=== PATIENT | female | born 1955 | race Caucasian/White ===

== ENCOUNTER 2024-03-04 22:15 | Inpatient (IN) | payer OTHER ==
[2024-03-04] MEDS ORDERED: PIPERACILLIN/TAZOB 4.5 GM 4.5 GM/100 ML BAG IVPB ONE (23:04)
[2024-03-05] MEDS: ACETAMINOPHEN 1000 MG/100 ML BAG IVPB ONE (00:07)
[2024-03-05] MEDS: LACTATED RINGERS SOLUTION 1,000 ML/1,000 ML INFUS.BAG IV STA (00:08)
[2024-03-05 00:51] LABS: HEMATOCRIT 35.8 % (32.4-45.2); MCH 30.7 pg (25.7-33.7); MCHC 33.5 g/dl (32.0-36.0); MEAN CELL VOLUME 91.7 fl (80-96); MEAN PLT VOLUME 6.9 fl (7.5-11.1); PLATELET COUNT 363 10^3/uL (134-434); RDW 14.5 % (11.6-15.6)
[2024-03-05 01:04] LABS: ALBUMIN 3.2 g/dl (3.4-5.0); BLOOD UREA NITROGEN 16.1 mg/dL (7-18)
[2024-03-05 01:06] LABS: PHOSPHOROUS 1.9 mg/dL (2.5-4.9)
[2024-03-05 01:08] LABS: BILIRUBIN,TOTAL 1.1 mg/dL (0.2-1); TOT PROT 6.5 g/dl (6.4-8.2)
[2024-03-05 01:10] LABS: INR 1.19 (0.83-1.09); PROTHROMBIN TIME (PATIENT) 13.6 SEC (9.7-13.0)
[2024-03-05 01:12] LABS: ACTIVATED PTT 31.2 SECONDS (25.2-36.5)
[2024-03-05] MEDS: PIPERACILLIN/TAZOB 4.5 GM 4.5 GM in DEXTROSE 5%-WATER 100 ML IVPB ONE (02:32)
[2024-03-05] MEDS: LACTATED RINGERS SOLUTION 1000 ML INFUS.BAG IV ONE ×2 (04:22→07:53)
[2024-03-05] MEDS: VANCOMYCIN 1,000 MG in DEXTROSE 5%-WATER - 250 ML IVPB ONE (04:22)
[2024-03-05] MEDS ORDERED: VANCOMYCIN 750 MG in DEXTROSE 5%-WATER - 150 ML IVPB SCH (07:00)
[2024-03-05] MEDS ORDERED: LACTATED RINGERS SOLUTION 1,000 ML/1,000 ML INFUS.BAG IV SCH ×2 (07:30)
[2024-03-05 07:39] LABS: HEMATOCRIT 32.1 % (32.4-45.2); HEMOGLOBIN 10.7 GM/dL (10.7-15.3); MCH 30.4 pg (25.7-33.7); MCHC 33.2 g/dl (32.0-36.0); MEAN CELL VOLUME 91.6 fl (80-96); MEAN PLT VOLUME 6.5 fl (7.5-11.1); PLATELET COUNT 341 10^3/uL (134-434); RBC 3.51 M/mm3 (3.60-5.2); RDW 14.7 % (11.6-15.6); WHITE BLOOD COUNT 26.7 K/mm3 (4.0-10.0)
[2024-03-05 07:50] LABS: POTASSIUM 3.4 mmol/L (3.5-5.1)
[2024-03-05 07:52] LABS: ALBUMIN 2.7 g/dl (3.4-5.0); BLOOD UREA NITROGEN 15.2 mg/dL (7-18); CALCIUM 8.9 mg/dL (8.5-10.1)
[2024-03-05 07:56] LABS: CREATININE 1.1 mg/dL (0.55-1.3); PHOSPHOROUS 3.2 mg/dL (2.5-4.9)
[2024-03-05 07:57] LABS: BILIRUBIN,TOTAL 1.4 mg/dL (0.2-1); TOT PROT 5.6 g/dl (6.4-8.2)
[2024-03-05] MEDS ORDERED: VANCOMYCIN/WATER FOR INJ (PEG) 750 MG/150 ML BAG IVPB SCH (08:00)
[2024-03-05] MEDS ORDERED: PIPERACILLIN/TAZOB 3.375 GM 3.375 GM in DEXTROSE 5%-WATER - 50 ML IVPB SCH (09:00)
[2024-03-05] MEDS ORDERED: ENOXAPARIN NA (PORCINE) 40 MG/0.4 ML DISP.SYRIN SQ SCH (10:00)
[2024-03-05] MEDS ORDERED: INDOCYANINE GREEN 25 MG/10 ML VIAL IVPUSH ONE (10:25)
[2024-03-05] MEDS ORDERED: HEPARIN NA (PORCINE) 5,000 UNITS/ML 1ML VIAL ONE (10:25)
[2024-03-05] MEDS ORDERED: BUPIVACAINE HCL/PF 0.25% (2.5MG/ML) 10 ML VIAL ONE (10:25)
[2024-03-05] MEDS ORDERED: MIDAZOLAM HCL 2 MG/2 ML SINGLE DOSE VIAL ONE (11:29)
[2024-03-05] MEDS ORDERED: ROCURONIUM BROMIDE 50 MG/5 ML SYRINGE ONE (11:30)
[2024-03-05 11:39] VITALS: BMI 22.2
[2024-03-05] MEDS: cefOXitin SODIUM 2 GM VIAL (RESTRICTED TO ID) IVPB ONE ×2 (11:55)
[2024-03-05] MEDS ORDERED: PROPOFOL 20 ML ONE (12:06)
[2024-03-05] MEDS: BUPIVACAINE HCL/PF 0.25% (2.5MG/ML) 10 ML VIAL IJ ONE ×2 (12:15)
[2024-03-05] MEDS ORDERED: HYDROmorphone HCl 2 MG/ML VIAL ONE (12:50)
[2024-03-05] MEDS ORDERED: KCL 10 MEQ IVPB 10 MEQ/100 ML INFUS.BAG IVPB SCH ×2 (14:00→18:00)
[2024-03-05] MEDS ORDERED: ACETAMINOPHEN INJECTION 100 ML ONE (14:07)
[2024-03-05] MEDS ORDERED: SUGAMMADEX SODIUM 200 MG/2 ML VIAL ONE (14:29)
[2024-03-05] MEDS ORDERED: BACITRACIN ZINC 15 GM TUBE TOPICAL OINTMENT ONE (14:56)
[2024-03-05 15:17] LABS: N-TERMINAL BNP 155.3 pg/ml (5-125)
[2024-03-05] MEDS ORDERED: BENZOIN/ALOE VERA/STORAX/TOLU 58 ML BOTTLE ONE (15:26)
[2024-03-05] MEDS ORDERED: ONDANSETRON 4 MG/2 ML VIAL IVPUSH PRN ×2 (15:54→17:16)
[2024-03-05] MEDS ORDERED: LACTATED RINGERS SOLUTION 1,000 ML IV SCH ×2 (16:00→17:16)
[2024-03-05] MEDS ORDERED: METOPROLOL TARTRATE 5 MG/5 ML VIAL IVPUSH PRN ×2 (16:03→17:16)
[2024-03-05] MEDS ORDERED: KETOROLAC TROMETHAMINE 30 MG/1 ML VIAL ONE (17:57)
[2024-03-05] MEDS: KETOROLAC TROMETHAMINE 15 MG/ML VIAL IVPUSH PRN (18:03)
[2024-03-05] MEDS: PIPERACILLIN/TAZOB 4.5 GM 4.5 GM/100 ML BAG IVPB SCH (18:08)
[2024-03-05] MEDS: LACTATED RINGERS SOLUTION 1,000 ML/1,000 ML INFUS.BAG IV SCH (18:14)
[2024-03-05] MEDS: HYDROmorphone HCl 2 MG/ML VIAL IVPB PRN (19:02)
[2024-03-05] MEDS: KCL 10 MEQ IVPB 10 MEQ/100 ML INFUS.BAG IVPB SCH (19:05)
[2024-03-05] MEDS: ACETAMINOPHEN 1000 MG/100 ML BAG IVPB SCH (21:15)
[2024-03-06] MEDS: KCL 10 MEQ IVPB 10 MEQ/100 ML INFUS.BAG IVPB SCH (01:35)
[2024-03-06 07:19] LABS: HEMATOCRIT 27.2 % (32.4-45.2); HEMOGLOBIN 8.8 GM/dL (10.7-15.3); MCH 29.8 pg (25.7-33.7); MCHC 32.3 g/dl (32.0-36.0); MEAN CELL VOLUME 92.4 fl (80-96); MEAN PLT VOLUME 6.8 fl (7.5-11.1); PLATELET COUNT 293 10^3/uL (134-434); RBC 2.95 M/mm3 (3.60-5.2); RDW 14.7 % (11.6-15.6); WHITE BLOOD COUNT 22.1 K/mm3 (4.0-10.0)
[2024-03-06 07:40] LABS: POTASSIUM 4.5 mmol/L (3.5-5.1)
[2024-03-06 07:46] LABS: ALBUMIN 2.6 g/dl (3.4-5.0); BLOOD UREA NITROGEN 14.6 mg/dL (7-18); CALCIUM 9.1 mg/dL (8.5-10.1)
[2024-03-06 07:50] LABS: CREATININE 0.9 mg/dL (0.55-1.3)
[2024-03-06 07:51] LABS: BILIRUBIN,TOTAL 0.8 mg/dL (0.2-1); TOT PROT 5.4 g/dl (6.4-8.2)
[2024-03-06 09:08] LABS: ANISOCYTOSIS 0; HELMET CELLS 0; HOWELL-JOLLY BODIES 0; MACROCYTOSIS 0; OVALOCYTE 0; ROULEAU 0; SICKELED CELLS 0; TARGET CELLS 0; TEAR DROP CELLS 0; TOXIC GRANULATION 0
[2024-03-06] MEDS: ENOXAPARIN NA (PORCINE) 40 MG/0.4 ML DISP.SYRIN SQ SCH (09:17)
[2024-03-06] MEDS: LACTATED RINGERS SOLUTION 1,000 ML/1,000 ML INFUS.BAG IV SCH (09:18)
[2024-03-06] MEDS: AMIODARONE HCL 200 MG TABLET PO SCH (21:42)
[2024-03-06] MEDS: metoPROLOL SUCCINATE 25 MG TAB.SR.24H (FP) PO SCH (21:42)
[2024-03-07] MEDS: ACETAMINOPHEN 1000 MG/100 ML BAG IVPB ONE (03:39)
[2024-03-07] MEDS: DULoxetine HCL 30 MG CAPSULE.DR PO SCH (09:21)
[2024-03-07 09:37] LABS: BASO % 0.1 % (0-2.0); EOS % 1.4 % (0-4.5); HEMATOCRIT 28.9 % (32.4-45.2); HEMOGLOBIN 9.4 GM/dL (10.7-15.3); LYMPH % 10.1 % (8-40); MCH 30.2 pg (25.7-33.7); MCHC 32.4 g/dl (32.0-36.0); MEAN CELL VOLUME 93.3 fl (80-96); MEAN PLT VOLUME 7.1 fl (7.5-11.1); NEUT % 82.4 % (42.8-82.8); PLATELET COUNT 346 10^3/uL (134-434); RDW 14.9 % (11.6-15.6); WHITE BLOOD COUNT 12.9 K/mm3 (4.0-10.0)
[2024-03-07 09:57] LABS: POTASSIUM 4.1 mmol/L (3.5-5.1)
[2024-03-07 10:00] LABS: BLOOD UREA NITROGEN 13.8 mg/dL (7-18); CALCIUM 9.3 mg/dL (8.5-10.1); MAGNESIUM 2.1 mg/dL (1.8-2.4)
[2024-03-07 10:04] LABS: CREATININE 0.9 mg/dL (0.55-1.3); PHOSPHOROUS 2.7 mg/dL (2.5-4.9)
[2024-03-07] MEDS: traZODone HCL 100 MG TABLET (FP) PO SCH (21:07)
[2024-03-08 10:23] LABS: POTASSIUM 3.5 mmol/L (3.5-5.1)
[2024-03-08 10:34] LABS: CALCIUM 9.1 mg/dL (8.5-10.1)
[2024-03-08 10:35] LABS: BLOOD UREA NITROGEN 9.9 mg/dL (7-18); MAGNESIUM 2.1 mg/dL (1.8-2.4)
[2024-03-08 10:38] LABS: PHOSPHOROUS 3.4 mg/dL (2.5-4.9)
[2024-03-08 11:11] LABS: BASO % 0.4 % (0-2.0); EOS % 4.5 % (0-4.5); HEMATOCRIT 27.1 % (32.4-45.2); HEMOGLOBIN 9.1 GM/dL (10.7-15.3); LYMPH % 19.3 % (8-40); MCH 31.1 pg (25.7-33.7); MCHC 33.7 g/dl (32.0-36.0); MEAN CELL VOLUME 92.2 fl (80-96); MONO % 9.3 % (3.8-10.2); NEUT % 66.5 % (42.8-82.8); PLATELET COUNT 355 10^3/uL (134-434); RBC 2.94 M/mm3 (3.60-5.2); RDW 14.5 % (11.6-15.6); WHITE BLOOD COUNT 8.2 K/mm3 (4.0-10.0)
[2024-03-08] MEDS: ACETAMINOPHEN 500 MG TABLET (FP) PO PRN (12:51)
[2024-03-08] MEDS: oxyCODONE HCL 5 MG TABLET PO PRN (23:41)
[2024-03-09 07:11] LABS: BASO % 0.6 % (0-2.0); EOS % 5.3 % (0-4.5); HEMATOCRIT 27.5 % (32.4-45.2); HEMOGLOBIN 9.1 GM/dL (10.7-15.3); LYMPH % 20.1 % (8-40); MCH 30.7 pg (25.7-33.7); MCHC 33.3 g/dl (32.0-36.0); MEAN CELL VOLUME 92.2 fl (80-96); MEAN PLT VOLUME 7.1 fl (7.5-11.1); MONO % 9.4 % (3.8-10.2); NEUT % 64.6 % (42.8-82.8); PLATELET COUNT 371 10^3/uL (134-434); RBC 2.98 M/mm3 (3.60-5.2); RDW 14.6 % (11.6-15.6)
[2024-03-09 07:28] LABS: POTASSIUM 3.3 mmol/L (3.5-5.1)
[2024-03-09 07:33] LABS: CALCIUM 8.9 mg/dL (8.5-10.1)
[2024-03-09 07:35] LABS: BLOOD UREA NITROGEN 7.2 mg/dL (7-18)
[2024-03-09 07:36] LABS: PHOSPHOROUS 3.7 mg/dL (2.5-4.9)
[2024-03-09 07:37] LABS: CREATININE 0.8 mg/dL (0.55-1.3)
[2024-03-09] MEDS: POTASSIUM CHLORIDE ORAL LIQUID 20 MEQ/15 ML PO ONE (10:25)
[2024-03-09 14:13] VITALS: BP 129/67; PULSE 76; RESP 18; TEMP 98.2
== END 2024-03-09 15:13 | disposition home health service (06) | DRG 854 ==
LOC: JER 22:15 → JERBED 03-05 04:21 → J8W 03-05 08:57 → J4S 03-05 18:45
PROVIDERS: ADMIT Internal Medicine; ATTEND Internal Medicine
PROC: 0D1N074 Bypass Sigmoid Colon to Cutaneous with Autologous Tissue Substitute, Open Approach (ICD-10-PCS; 2024-03-05)
PROC: 8E0W0CZ Robotic Assisted Procedure of Trunk Region, Open Approach (ICD-10-PCS; 2024-03-05)
PROC: 0DTN0ZZ Resection of Sigmoid Colon, Open Approach (ICD-10-PCS; principal; 2024-03-05 13:30)
DX: A41.9 Sepsis, unspecified organism (principal); I31.39 Other pericardial effusion (noninflammatory); K57.20 Diverticulitis of large intestine with perforation and abscess without bleeding; I48.92 Unspecified atrial flutter; E83.39 Other disorders of phosphorus metabolism; I48.91 Unspecified atrial fibrillation; F41.8 Other specified anxiety disorders
CPT/HCPCS: 0241U-QW; 36415; 71045-TC-FY; 74177-TC; 80048; 80053; 83605; 83735; 83880; 84100; 84443; 84484; 85025; 85027; 85610; 85730; 86850; 86900; 86901; 87040; 88307-TC; 93005; 93010; 93306-TC; 94760; 97116-GP; 97161-GP; 99285-25; J0131; J1644

== ENCOUNTER 2024-05-31 04:17 | Day surgery (SDC) | payer OTHER ==
[2024-05-31 08:56] VITALS: BMI 20.9
[2024-05-31 11:45] VITALS: TEMP 97.7
[2024-05-31 11:46] VITALS: PULSE 74; RESP 18
[2024-05-31 12:06] VITALS: BP 108/66
== END 2024-05-31 12:23 | disposition home or self-care (01) ==
LOC: JASU-ENDO 04:17
PROVIDERS: ATTEND Internal Medicine Gastroenterology
PROC: 0DBP8ZX Excision of Rectum, Via Natural or Artificial Opening Endoscopic, Diagnostic (ICD-10-PCS; principal; 2024-05-31 10:00)
DX: K62.89 Other specified diseases of anus and rectum (principal); K64.4 Residual hemorrhoidal skin tags; K64.8 Other hemorrhoids; Z87.19 Personal history of other diseases of the digestive system
CPT/HCPCS: 88305-TC

== ENCOUNTER 2024-07-23 06:08 | Inpatient (IN) | payer OTHER ==
[2024-07-19 12:33] VITALS: BMI 21.7
[2024-07-23] MEDS ORDERED: GABAPENTIN 300 MG CAPSULE ONE (06:27)
[2024-07-23] MEDS ORDERED: ACETAMINOPHEN 500 MG TABLET (FP) ONE (06:27)
[2024-07-23] MEDS: GABAPENTIN 300 MG CAPSULE PO ONE (06:34)
[2024-07-23] MEDS: ACETAMINOPHEN 500 MG TABLET (FP) PO ONE (06:34)
[2024-07-23] MEDS: SCOPOLAMINE HYDROBROMIDE 1 PATCH PATCH.TD72 TD ONE (06:50)
[2024-07-23] MEDS ORDERED: BUPIVACAINE HCL/PF 0.25% (2.5MG/ML) 10 ML VIAL ONE (07:03)
[2024-07-23] MEDS ORDERED: oxyCODONE HCL 5 MG TABLET PO PRN (07:10)
[2024-07-23] MEDS ORDERED: ONDANSETRON 4 MG/2 ML VIAL IVPUSH PRN (07:10)
[2024-07-23] MEDS ORDERED: cefOXitin SODIUM 2 GM VIAL (RESTRICTED TO ID) IVPB ONE (07:30)
[2024-07-23] MEDS ORDERED: DEXAMETHASONE SOD PHOSPHATE 4 MG/1 ML VIAL ONE (07:38)
[2024-07-23] MEDS ORDERED: HYDROmorphone HCl 2 MG/ML VIAL ONE ×2 (07:38→11:41)
[2024-07-23] MEDS ORDERED: ONDANSETRON 4 MG/2 ML VIAL ONE ×2 (07:38→12:50)
[2024-07-23] MEDS ORDERED: LIDOCAINE HCL/PF 2% SDV 5ML VIAL ONE (07:38)
[2024-07-23] MEDS ORDERED: PROPOFOL 40 ML ONE (07:39)
[2024-07-23] MEDS ORDERED: MIDAZOLAM HCL 2 MG/2 ML SINGLE DOSE VIAL ONE (07:39)
[2024-07-23] MEDS ORDERED: ROCURONIUM BROMIDE 50 MG/5 ML SYRINGE ONE ×3 (07:39→11:59)
[2024-07-23] MEDS ORDERED: SUCCINYLCHOLINE CHLORIDE 200 MG/10 ML SYRINGE ONE (07:40)
[2024-07-23] MEDS ORDERED: METOPROLOL TARTRATE 5 MG/5 ML VIAL ONE (07:42)
[2024-07-23] MEDS: cefOXitin SODIUM 2 GM VIAL (RESTRICTED TO ID) IVPB ONE ×2 (08:30→18:24)
[2024-07-23] MEDS: BUPIVACAINE HCL/PF 0.25% (2.5MG/ML) 10 ML VIAL IJ ONE (09:14)
[2024-07-23] MEDS ORDERED: INDOCYANINE GREEN 25 MG/10 ML VIAL IVPUSH ONE (10:57)
[2024-07-23] MEDS ORDERED: TRANEXAMIC ACID 1000 MG/10 ML VIAL ONE (12:48)
[2024-07-23] MEDS ORDERED: SUGAMMADEX SODIUM 200 MG/2 ML VIAL ONE ×2 (12:53→13:21)
[2024-07-23] MEDS: HYDROmorphone HCl 2 MG/ML VIAL IVPUSH PRN (14:55)
[2024-07-23] MEDS ORDERED: HYDROmorphone HCL CARPU-JECT 2 MG/1 ML DISP.SYRIN ONE (14:56)
[2024-07-23] MEDS: LACTATED RINGERS SOLUTION 1,000 ML IV SCH (15:04)
[2024-07-23 15:31] LABS: ABSOLUTE IMMATURE GRANULOCYTES 0.06 x10^3/uL (0.0-0.031); BASOPHILS # 0.03 x10^3/uL (0.01-0.08); EOSINOPHIL % 0.1 % (0.7-5.8); EOSINOPHILS # 0.01 x10^3/uL (0.04-0.36); HEMATOCRIT 34.4 % (34.1-44.9); HEMOGLOBIN 10.9 g/dL (11.2-15.7); MCHC 31.7 g/dl (32.2-35.5); MEAN CELL VOLUME 96.6 fl (79.4-94.8); MEAN PLT VOLUME 8.6 fl (9.4-12.3); MONOCYTE # 0.43 x10^3/uL (0.24-0.86); MONOCYTE % 2.7 % (4.7-12.5); PLATELET COUNT 339 x10^3/uL (182-369)
[2024-07-23 15:52] LABS: CHLORIDE 104 mmol/L (98-107); POTASSIUM 4.5 mmol/L (3.5-5.1); SODIUM 136 mmol/L (136-145)
[2024-07-23 15:54] LABS: ANION GAP 6 mmol/L (4-13); BLOOD UREA NITROGEN 15.1 mg/dL (7-18); CALCIUM 8.6 mg/dL (8.5-10.1); CO2 26 mmol/L (21-32); GLUCOSE,RANDOM 148 mg/dL (74-106)
[2024-07-23 15:57] LABS: CREATININE 1.5 mg/dL (0.55-1.3)
[2024-07-23] MEDS: CEFOXITIN SODIUM 2 GM in DEXTROSE 5%-WATER 100 ML IVPB SCH (17:28)
[2024-07-23] MEDS: ACETAMINOPHEN 325 MG TABLET (FP) PO SCH (18:57)
[2024-07-23] MEDS: oxyCODONE HCL 5 MG TABLET PO PRN (21:47)
[2024-07-23] MEDS: traZODone HCL 100 MG TABLET (FP) PO SCH (21:48)
[2024-07-23] MEDS: AMIODARONE HCL 200 MG TABLET PO SCH (21:48)
[2024-07-23 23:12] LABS: ABSOLUTE IMMATURE GRANULOCYTES 0.03 x10^3/uL (0.0-0.031); BASOPHILS # 0.01 x10^3/uL (0.01-0.08); HEMATOCRIT 29.1 % (34.1-44.9); HEMOGLOBIN 9.3 g/dL (11.2-15.7); MEAN CELL VOLUME 96.4 fl (79.4-94.8); MEAN PLT VOLUME 8.7 fl (9.4-12.3); MONOCYTE # 0.82 x10^3/uL (0.24-0.86); MONOCYTE % 7.8 % (4.7-12.5); PLATELET COUNT 271 x10^3/uL (182-369); RDW 13.1 % (12.4-16.4)
[2024-07-23 23:38] LABS: POTASSIUM 4.6 mmol/L (3.5-5.1)
[2024-07-23 23:41] LABS: ALBUMIN 2.9 g/dl (3.4-5.0); BLOOD UREA NITROGEN 16.8 mg/dL (7-18); CALCIUM 8.4 mg/dL (8.5-10.1); MAGNESIUM 1.7 mg/dL (1.8-2.4)
[2024-07-23 23:44] LABS: CREATININE 1.6 mg/dL (0.55-1.3); PHOSPHOROUS 5.4 mg/dL (2.5-4.9)
[2024-07-23 23:46] LABS: BILIRUBIN,TOTAL 0.8 mg/dL (0.2-1); TOT PROT 5.2 g/dl (6.4-8.2)
[2024-07-24] MEDS ORDERED: MAGNESIUM 2GM/50ML STERILE WATER IVPB IVPB ONE (07:16)
[2024-07-24 09:08] LABS: ABSOLUTE IMMATURE GRANULOCYTES 0.04 x10^3/uL (0.0-0.031); BASOPHILS # 0.01 x10^3/uL (0.01-0.08); HEMATOCRIT 30.6 % (34.1-44.9); HEMOGLOBIN 9.5 g/dL (11.2-15.7); MEAN CELL VOLUME 96.8 fl (79.4-94.8); MEAN PLT VOLUME 8.8 fl (9.4-12.3); MONOCYTE # 1.15 x10^3/uL (0.24-0.86); MONOCYTE % 9.9 % (4.7-12.5); PLATELET COUNT 309 x10^3/uL (182-369)
[2024-07-24 09:26] LABS: POTASSIUM 4.3 mmol/L (3.5-5.1)
[2024-07-24 09:37] LABS: BLOOD UREA NITROGEN 16.4 mg/dL (7-18); CALCIUM 8.6 mg/dL (8.5-10.1); MAGNESIUM 1.8 mg/dL (1.8-2.4)
[2024-07-24 09:41] LABS: CREATININE 1.7 mg/dL (0.55-1.3); PHOSPHOROUS 4.2 mg/dL (2.5-4.9)
[2024-07-24] MEDS: HYDROmorphone HCL CARPU-JECT 2 MG/1 ML DISP.SYRIN IVPB PRN (09:43)
[2024-07-24] MEDS: MULTIVITAMINS (DAILY MVI) TABLET (FP) PO SCH (09:50)
[2024-07-24] MEDS: ENOXAPARIN NA (PORCINE) 40 MG/0.4 ML DISP.SYRIN SQ SCH (09:50)
[2024-07-24] MEDS ORDERED: AMIODARONE HCL 100 MG TABLET PO SCH (10:00)
[2024-07-24] MEDS: MAGNESIUM 2GM/50ML STERILE WATER IVPB IVPB ONE (10:58)
[2024-07-24] MEDS: DULoxetine HCL 30 MG CAPSULE.DR PO SCH ×2 (10:58→11:02)
[2024-07-24] MEDS: LORazepam 0.5 MG TABLET PO ONE (14:27)
[2024-07-24] MEDS: ACETAMINOPHEN 500 MG TABLET (FP) PO SCH (15:51)
[2024-07-24] MEDS: GABAPENTIN 300 MG CAPSULE PO SCH (15:51)
[2024-07-24] MEDS ORDERED: LORazepam 1 MG TABLET ONE (16:42)
[2024-07-24] MEDS: LORazepam 1 MG TABLET PO PRN (16:51)
[2024-07-24 18:28] LABS: ABSOLUTE IMMATURE GRANULOCYTES 0.06 x10^3/uL (0.0-0.031); BASOPHILS # 0.03 x10^3/uL (0.01-0.08); EOSINOPHIL % 0.1 % (0.7-5.8); EOSINOPHILS # 0.02 x10^3/uL (0.04-0.36); HEMATOCRIT 30.5 % (34.1-44.9); HEMOGLOBIN 9.6 g/dL (11.2-15.7); MCHC 31.5 g/dl (32.2-35.5); MEAN CELL VOLUME 97.1 fl (79.4-94.8); MEAN PLT VOLUME 8.9 fl (9.4-12.3); MONOCYTE # 1.26 x10^3/uL (0.24-0.86); MONOCYTE % 8.6 % (4.7-12.5); PLATELET COUNT 351 x10^3/uL (182-369); RDW 13.2 % (12.4-16.4)
[2024-07-24 18:47] LABS: POTASSIUM 4.3 mmol/L (3.5-5.1)
[2024-07-24 18:51] LABS: CALCIUM 8.8 mg/dL (8.5-10.1)
[2024-07-24 18:52] LABS: ALBUMIN 3.2 g/dl (3.4-5.0); BLOOD UREA NITROGEN 18.8 mg/dL (7-18); MAGNESIUM 2.4 mg/dL (1.8-2.4)
[2024-07-24 18:55] LABS: PHOSPHOROUS 3.2 mg/dL (2.5-4.9)
[2024-07-24 18:56] LABS: BILIRUBIN,TOTAL 1.2 mg/dL (0.2-1)
[2024-07-24 18:57] LABS: TOT PROT 5.8 g/dl (6.4-8.2)
[2024-07-24] MEDS: HALOPERIDOL LACTATE 5 MG/ML IM PRN (21:30)
[2024-07-25 04:12] LABS: COCAINE, UR NEGATIVE (NEGATIVE); METHADONE, UR NEGATIVE (NEGATIVE); PHENCYCLIDINE,URINE NEGATIVE (NEGATIVE); URINE BARBITURATES NEGATIVE (NEGATIVE); URINE BENZODIAZEPINES NEGATIVE (NEGATIVE)
[2024-07-25 04:15] LABS: EPI CELLS 6 /uL (0-25.1); HYALINE CASTS 0 /uL (0-3.1); URINE APPEARANCE CLEAR; URINE BACTERIA 3 /uL (0-1359); URINE BILIRUBIN NEGATIVE (NEGATIVE); URINE COLOR YELLOW; URINE GLUCOSE (UA) NEGATIVE (NEGATIVE); URINE KETONE 1+ (NEGATIVE); URINE LEUK ESTERASE TRACE (NEGATIVE); URINE NITRITE NEGATIVE (NEGATIVE); URINE PROTEIN NEGATIVE (NEGATIVE); URINE RBC 211 /uL (0-23.9); URINE UROBILINOGEN 0.2 mg/dL (0.2-1.0); URINE WBC 41 /uL (0-25.8)
[2024-07-25 04:38] LABS: OPIATES, URI POSITIVE (NEGATIVE); URINE AMPHETAMINES NEGATIVE (NEGATIVE)
[2024-07-25] MEDS ORDERED: HALOPERIDOL LACTATE 5 MG/ML ONE (04:54)
[2024-07-25] MEDS: HALOPERIDOL LACTATE 5 MG/ML IM ONE (04:59)
[2024-07-25 09:42] LABS: ABSOLUTE IMMATURE GRANULOCYTES 0.08 x10^3/uL (0.0-0.031); BASOPHILS # 0.03 x10^3/uL (0.01-0.08); HEMATOCRIT 27.6 % (34.1-44.9); HEMOGLOBIN 8.8 g/dL (11.2-15.7); MCHC 31.9 g/dl (32.2-35.5); MEAN CELL VOLUME 95.2 fl (79.4-94.8); MEAN PLT VOLUME 8.9 fl (9.4-12.3); MONOCYTE % 9.1 % (4.7-12.5); PLATELET COUNT 290 x10^3/uL (182-369)
[2024-07-25 10:11] LABS: BLOOD UREA NITROGEN 21.4 mg/dL (7-18)
[2024-07-25 10:14] LABS: CALCIUM 8.8 mg/dL (8.5-10.1); MAGNESIUM 2.4 mg/dL (1.8-2.4)
[2024-07-25 10:15] LABS: CREATININE 1.6 mg/dL (0.55-1.3); PHOSPHOROUS 3.7 mg/dL (2.5-4.9)
[2024-07-25 12:55] VITALS: RESP 18
[2024-07-26 09:04] LABS: ABSOLUTE IMMATURE GRANULOCYTES 0.13 x10^3/uL (0.0-0.031); BASOPHILS # 0.02 x10^3/uL (0.01-0.08); EOSINOPHIL % 0.1 % (0.7-5.8); EOSINOPHILS # 0.02 x10^3/uL (0.04-0.36); MCHC 32.1 g/dl (32.2-35.5); MEAN CELL VOLUME 95.9 fl (79.4-94.8); MEAN PLT VOLUME 9.2 fl (9.4-12.3); MONOCYTE # 1.46 x10^3/uL (0.24-0.86); MONOCYTE % 8.5 % (4.7-12.5); PLATELET COUNT 286 x10^3/uL (182-369); RDW 12.8 % (12.4-16.4)
[2024-07-26 09:42] LABS: POTASSIUM 3.7 mmol/L (3.5-5.1)
[2024-07-26 10:00] LABS: CALCIUM 8.3 mg/dL (8.5-10.1)
[2024-07-26 10:01] LABS: MAGNESIUM 1.8 mg/dL (1.8-2.4)
[2024-07-26 10:02] LABS: CREATININE 1.1 mg/dL (0.55-1.3)
[2024-07-26 10:03] LABS: PHOSPHOROUS 2.4 mg/dL (2.5-4.9)
[2024-07-26] MEDS: ENOXAPARIN NA (PORCINE) 30 MG/0.3 ML DISP.SYRIN SQ SCH (10:58)
[2024-07-26] MEDS: FOLIC ACID 1 MG TABLET (FP) PO SCH (11:00)
[2024-07-26] MEDS: LACTATED RINGERS SOLUTION 1,000 ML IV SCH ×2 (18:47→20:13)
[2024-07-26] MEDS: NAPH,MB-DB/K PH,MBDB POWDER PACKET PO SCH (21:09)
[2024-07-27 08:59] LABS: ABSOLUTE IMMATURE GRANULOCYTES 0.03 x10^3/uL (0.0-0.031); BASOPHILS # 0.02 x10^3/uL (0.01-0.08); EOSINOPHIL % 1.7 % (0.7-5.8); EOSINOPHILS # 0.17 x10^3/uL (0.04-0.36); HEMATOCRIT 29.4 % (34.1-44.9); HEMOGLOBIN 9.3 g/dL (11.2-15.7); MCHC 31.6 g/dl (32.2-35.5); MEAN CELL VOLUME 95.8 fl (79.4-94.8); MEAN PLT VOLUME 9.4 fl (9.4-12.3); MONOCYTE # 0.89 x10^3/uL (0.24-0.86); MONOCYTE % 8.9 % (4.7-12.5); PLATELET COUNT 335 x10^3/uL (182-369); RDW 12.7 % (12.4-16.4)
[2024-07-27 09:05] LABS: POTASSIUM 3.5 mmol/L (3.5-5.1)
[2024-07-27 09:11] LABS: BLOOD UREA NITROGEN 8.5 mg/dL (7-18); MAGNESIUM 1.8 mg/dL (1.8-2.4)
[2024-07-27 09:15] LABS: CREATININE 0.8 mg/dL (0.55-1.3); PHOSPHOROUS 2.7 mg/dL (2.5-4.9)
[2024-07-27] MEDS: ENOXAPARIN NA (PORCINE) 40 MG/0.4 ML DISP.SYRIN SQ SCH (10:06)
[2024-07-27] MEDS: POLYETHYLENE GLYCOL (HEALTHYLAX) 3350 17 GM PACKET PO SCH (10:08)
[2024-07-28 09:24] LABS: ABSOLUTE IMMATURE GRANULOCYTES 0.03 x10^3/uL (0.0-0.031); BASOPHILS # 0.02 x10^3/uL (0.01-0.08); EOSINOPHIL % 2.3 % (0.7-5.8); EOSINOPHILS # 0.17 x10^3/uL (0.04-0.36); HEMATOCRIT 30.9 % (34.1-44.9); HEMOGLOBIN 9.9 g/dL (11.2-15.7); MEAN CELL VOLUME 96.6 fl (79.4-94.8); MEAN PLT VOLUME 9.3 fl (9.4-12.3); MONOCYTE # 0.76 x10^3/uL (0.24-0.86); MONOCYTE % 10.4 % (4.7-12.5); PLATELET COUNT 390 x10^3/uL (182-369); RDW 12.6 % (12.4-16.4)
[2024-07-28 09:44] LABS: POTASSIUM 3.5 mmol/L (3.5-5.1)
[2024-07-28 09:50] LABS: CALCIUM 8.8 mg/dL (8.5-10.1)
[2024-07-28 09:51] LABS: BLOOD UREA NITROGEN 9.6 mg/dL (7-18); MAGNESIUM 1.7 mg/dL (1.8-2.4)
[2024-07-28 09:56] LABS: CREATININE 0.9 mg/dL (0.55-1.3)
[2024-07-28 11:12] VITALS: BP 146/87; PULSE 72; TEMP 98.6
== END 2024-07-28 13:40 | disposition home or self-care (01) | DRG 330 ==
LOC: J2C 06:08 → J8W 17:53
PROVIDERS: ADMIT Surgery; ATTEND Internal Medicine
PROC: 8E0W4CZ Robotic Assisted Procedure of Trunk Region, Percutaneous Endoscopic Approach (ICD-10-PCS; 2024-07-23)
PROC: 0DBE4ZZ Excision of Large Intestine, Percutaneous Endoscopic Approach (ICD-10-PCS; principal; 2024-07-23 07:45)
PROC: 0T9D80Z Drainage of Urethra with Drainage Device, Via Natural or Artificial Opening Endoscopic (ICD-10-PCS; 2024-07-23 07:45)
DX: Z43.3 Encounter for attention to colostomy (principal); F05 Delirium due to known physiological condition; R44.3 Hallucinations, unspecified; I48.92 Unspecified atrial flutter; K57.32 Diverticulitis of large intestine without perforation or abscess without bleeding; N13.30 Unspecified hydronephrosis; I48.91 Unspecified atrial fibrillation; R31.0 Gross hematuria; F41.8 Other specified anxiety disorders
CPT/HCPCS: 36415; 70450-TC; 71045-TC-FY; 71046-TC-FY; 74018-TC-FY; 76775-TC; 80048; 80053; 80307; 81003; 82962; 83735; 84100; 84484; 85025; 86140; 86850; 86900; 86901; 87040; 87086; 88304-TC; 88307-TC; 93005; 93010; 94760; 97116-GP; 97161-GP